=== PATIENT | female | born 1940 | race Caucasian/White ===

== ENCOUNTER 2017-08-24 06:22 | Inpatient (IN) | payer MEDICARE ==
[~2017-08-24] VITALS: Ht 149.9 cm; Wt 72.7 kg
[~2017-08-24 06:22] MED LIST: ACET-1600 PO; CLON-364 PO; DILT240C77 PO; HYDR-3240 PO; HYDR-3307 PO; LEVO100T5 PO; ZOLP5TAB6 PO
[2017-08-24] MEDS ORDERED: morphine SULFATE 10 MG/ML, 1ML ONE (06:48)
[2017-08-24] MEDS: MORPHINE SULFATE 4 MG/ML, 1ML IVPush PRN ×4 (06:51→19:17)
[2017-08-24] MEDS ORDERED: SODIUM CHLORIDE FLUSH 10ML SYR IVF ONE (07:00)
[2017-08-24 07:09] LABS: MEAN CORPUSCULAR HEMOGLOBIN 29.1 pg (27.0-34.8); MEAN CORPUSCULAR HGB CONC 34.3 g/dL (32.4-35.8); MEAN CORPUSCULAR VOLUME 84.9 fL (80-100); MEAN PLATELET VOLUME 7.8 fL (7.4-10.4); PLATELET COUNT 190 x10^3/uL (130-400); RED BLOOD COUNT 3.67 x10^6/uL (3.82-5.3); RED CELL DISTRIBUTION WIDTH 13.5 % (9.6-15.2)
[2017-08-24 07:13] LABS: ALBUMIN 2.9 g/dL (3.4-5.0); ANION GAP 7 mmol/L (5-15); CALCIUM 8.5 mg/dL (8.5-10.1); CHLORIDE 101 mmol/L (98-107); CREATININE 0.68 mg/dL (0.55-1.02)
[2017-08-24 07:17] LABS: TROPONIN I 0.039 ng/mL (0.000-0.045)
[2017-08-24 07:24] LABS: BASOPHILS # (AUTO) 0.01 x10^3/uL (0-0.1); BASOPHILS % (AUTO) 0 % (0-1); EOSINOPHILS # (AUTO) 0.01 x10^3/uL (0-0.4); EOSINOPHILS % (AUTO) 0 % (1-7); LYMPHOCYTES # (AUTO) 0.57 x10^3/uL (1-3.4); LYMPHOCYTES % (AUTO) 8 % (22-44); MD SCAN; MONOCYTES # (AUTO) 0.49 x10^3/uL (0.2-0.8); MONOCYTES % (AUTO) 7 % (2-9); NEUTROPHILS # (AUTO) 5.93 x10^3/uL (1.8-6.8); NEUTROPHILS % (AUTO) 85 % (42-75)
[2017-08-24] MEDS ORDERED: MORPHINE SULFATE 4 MG/ML, 1ML IVPush PRN (08:30)
[2017-08-24] MEDS ORDERED: OMNIPAQUE 350 MG/ML, 100ML BOTTLE ONE (08:54)
[2017-08-24] MEDS ORDERED: LEVO25TA2 PO (09:07)
[2017-08-24] MEDS ORDERED: FUROSEMIDE 20 MG/2 ML IV ONE (10:00)
[2017-08-24] MEDS ORDERED: FUROSEMIDE 40 MG/4 ML ONE (10:42)
[2017-08-24] MEDS ORDERED: MORPHINE SULFATE 4 MG/ML, 1ML ONE (10:43)
[2017-08-24] MEDS ORDERED: hydrALAzine 20 MG/ML, 1ML IVPush PRN (11:00)
[2017-08-24] MEDS ORDERED: ONDANSETRON 2MG/ML, 2ML IVPush PRN (11:00)
[2017-08-24] MEDS ORDERED: POTASSIUM CHLORIDE 20 MEQ TAB.ER.PRT PO ONE (11:30)
[2017-08-24] MEDS: HYDROcodone/APAP 5/325 TABLET PO PRN ×2 (12:15→22:10)
[2017-08-24] MEDS: HEPARIN 5,000 UNITS/ML, 1ML SQ SCH ×2 (12:16→19:17)
[2017-08-24 14:01] VITALS: BP 123/66
[2017-08-24 19:52] VITALS: BP 156/83
[2017-08-25] MEDS: MORPHINE SULFATE 4 MG/ML, 1ML IVPush PRN ×2 (01:15→06:19)
[2017-08-25 01:16] VITALS: BP 157/87
[2017-08-25] MEDS: HEPARIN 5,000 UNITS/ML, 1ML SQ SCH ×3 (02:44→18:41)
[2017-08-25] MEDS: HYDROcodone/APAP 5/325 TABLET PO PRN ×4 (04:29→22:09)
[2017-08-25 06:07] LABS: BASOPHILS # (AUTO) 0.02 x10^3/uL (0-0.1); BASOPHILS % (AUTO) 0 % (0-1); EOSINOPHILS # (AUTO) 0.04 x10^3/uL (0-0.4); EOSINOPHILS % (AUTO) 1 % (1-7); LYMPHOCYTES % (AUTO) 13 % (22-44); MD NO; MEAN CORPUSCULAR HEMOGLOBIN 29.5 pg (27.0-34.8); MEAN CORPUSCULAR HGB CONC 34.3 g/dL (32.4-35.8); MEAN PLATELET VOLUME 7.8 fL (7.4-10.4); MONOCYTES % (AUTO) 10 % (2-9); NEUTROPHILS # (AUTO) 5.26 x10^3/uL (1.8-6.8); NEUTROPHILS % (AUTO) 76 % (42-75); PLATELET COUNT 226 x10^3/uL (130-400); RED BLOOD COUNT 3.77 x10^6/uL (3.82-5.3); RED CELL DISTRIBUTION WIDTH 13.1 % (9.6-15.2)
[2017-08-25 06:13] LABS: ANION GAP 5 mmol/L (5-15); CALCIUM 8.5 mg/dL (8.5-10.1); CHLORIDE 98 mmol/L (98-107); CREATININE 0.52 mg/dL (0.55-1.02)
[2017-08-25 06:50] VITALS: BP 152/85
[2017-08-25] MEDS: LEVOTHYROXINE 88 MCG TABLET PO SCH (08:30)
[2017-08-25] MEDS: DOCUSATE 100 MG CAPSULE PO SCH (08:56)
[2017-08-25] MEDS: DILTIAZEM 240 MG CAP.ER.24H PO SCH (08:57)
[2017-08-25] MEDS: FUROSEMIDE 40 MG/4 ML IV SCH ×2 (08:59→17:09)
[2017-08-25 13:06] VITALS: BP 118/67
[2017-08-25 19:03] VITALS: BP 118/71
[2017-08-25] MEDS ORDERED: ZOLPIDEM 5MG TABLET PO PRN (21:30)
[2017-08-26 01:27] VITALS: BP 136/79
[2017-08-26] MEDS: MORPHINE SULFATE 4 MG/ML, 1ML IVPush PRN (02:40)
[2017-08-26] MEDS: HEPARIN 5,000 UNITS/ML, 1ML SQ SCH ×2 (03:17→11:00)
[2017-08-26 04:50] LABS: BASOPHILS # (AUTO) 0.03 x10^3/uL (0-0.1); BASOPHILS % (AUTO) 0 % (0-1); EOSINOPHILS # (AUTO) 0.02 x10^3/uL (0-0.4); EOSINOPHILS % (AUTO) 0 % (1-7); LYMPHOCYTES # (AUTO) 0.76 x10^3/uL (1-3.4); LYMPHOCYTES % (AUTO) 11 % (22-44); MD NO; MEAN CORPUSCULAR HEMOGLOBIN 28.7 pg (27.0-34.8); MEAN CORPUSCULAR HGB CONC 33.9 g/dL (32.4-35.8); MEAN CORPUSCULAR VOLUME 84.6 fL (80-100); MEAN PLATELET VOLUME 7.3 fL (7.4-10.4); MONOCYTES # (AUTO) 0.68 x10^3/uL (0.2-0.8); MONOCYTES % (AUTO) 10 % (2-9); NEUTROPHILS # (AUTO) 5.29 x10^3/uL (1.8-6.8); NEUTROPHILS % (AUTO) 78 % (42-75); PLATELET COUNT 277 x10^3/uL (130-400); RED BLOOD COUNT 3.97 x10^6/uL (3.82-5.3); RED CELL DISTRIBUTION WIDTH 13.3 % (9.6-15.2)
[2017-08-26] MEDS: LEVOTHYROXINE 88 MCG TABLET PO SCH (04:50)
[2017-08-26] MEDS: HYDROcodone/APAP 5/325 TABLET PO PRN ×2 (04:50→14:14)
[2017-08-26 05:02] LABS: ANION GAP 5 mmol/L (5-15); CALCIUM 8.6 mg/dL (8.5-10.1); CHLORIDE 96 mmol/L (98-107)
[2017-08-26 05:04] LABS: CREATININE 0.68 mg/dL (0.55-1.02)
[2017-08-26 07:55] VITALS: BP 145/81
[2017-08-26] MEDS ORDERED: MAGNESIUM HYDROXIDE 8%, 30ML UDC PO SCH (09:00)
[2017-08-26] MEDS: DOCUSATE 100 MG CAPSULE PO SCH (09:28)
[2017-08-26] MEDS: DILTIAZEM 240 MG CAP.ER.24H PO SCH (09:28)
[2017-08-26 12:05] VITALS: BP 164/82
[2017-08-26 21:30] VITALS: BP 160/92
== END 2017-08-27 03:56 | disposition home health service (06) | DRG 291 ==
LOC: ED 08:30 → EDIP 09:41 → 4WST 11:48
PROVIDERS: ADMIT Internal Medicine Pulmonary Disease; ATTEND Internal Medicine Pulmonary Disease
DX: I11.0 Hypertensive heart disease with heart failure (principal); J96.01 Acute respiratory failure with hypoxia; E44.0 Moderate protein-calorie malnutrition; D64.9 Anemia, unspecified; R73.9 Hyperglycemia, unspecified; M54.5 Low back pain; E03.9 Hypothyroidism, unspecified; F41.1 Generalized anxiety disorder; G89.29 Other chronic pain; K59.00 Constipation, unspecified; Z68.32 Body mass index [BMI] 32.0-32.9, adult; Z80.51 Family history of malignant neoplasm of kidney; Z87.891 Personal history of nicotine dependence; Z90.49 Acquired absence of other specified parts of digestive tract; I50.31 Acute diastolic (congestive) heart failure
CPT/HCPCS: 36415; 71045; 71275; 80048; 82040; 83880; 84484; 85025; 93005; 93306; J1644; J1940; Q9967

== ENCOUNTER 2018-04-14 17:00 | Inpatient (IN) | payer MEDICARE ==
[~2018-04-14] VITALS: Ht 149.9 cm; Wt 74.1 kg
[~2018-04-14 17:00] MED LIST changes: -CLON-364 PO; +CLON0.5T11 PO; +LEVO25TA2 PO
[2018-04-15] MEDS ORDERED: LACTATED RINGERS 1,000 ML IV SCH (07:24)
[2018-04-15] MEDS ORDERED: ACETAMINOPHEN 500 MG TABLET PO ONE (07:30)
[2018-04-15 07:32] VITALS: BP 151/91
[2018-04-15] MEDS ORDERED: ACET325T14 PO (07:57)
[2018-04-15] MEDS ORDERED: METO25TA35 PO (07:57)
[2018-04-15] MEDS ORDERED: POTASSIUM (07:57)
[2018-04-15] MEDS ORDERED: FURO20TA3 PO (07:57)
[2018-04-15] MEDS ORDERED: MIDAZOLAM 1 MG/ML, 2ML ONE (07:58)
[2018-04-15] MEDS ORDERED: FENTANYL PF 250 MCG/5ML ONE (07:59)
[2018-04-15] MEDS ORDERED: PROPOFOL 10 MG/ML, 20ML ONE (08:02)
[2018-04-15] MEDS ORDERED: ROCURONIUM 10MG/ML,5ML ONE (08:04)
[2018-04-15] MEDS ORDERED: LIDOCAINE-MPF 2% ,5ML ONE (08:05)
[2018-04-15] MEDS ORDERED: CEFAZOLIN 1,000 MG ONE ×2 (08:05)
[2018-04-15] MEDS ORDERED: BUPIVACAINE 0.25% ONE (10:53)
[2018-04-15] MEDS ORDERED: THROMBIN 5,000 UNIT VIAL TP ONE (10:53)
[2018-04-15] MEDS ORDERED: METHYLENE BLUE 10 MG/ML 10ML ONE (10:53)
[2018-04-15] MEDS ORDERED: VANCOMYCIN 1,000 MG ONE (10:54)
[2018-04-15] MEDS ORDERED: EPINEPHRINE 1 MG/ML, 1ML ONE (10:54)
[2018-04-15] MEDS ORDERED: BACITRACIN 50,000 UNIT ONE (10:54)
[2018-04-15] MEDS ORDERED: GLYCOPYRROLATE 0.2MG/1ML, 5ML ONE (11:11)
[2018-04-15] MEDS ORDERED: NEOSTIGMINE 1 MG/ML, 10ML ONE (11:11)
[2018-04-15] MEDS ORDERED: PHENYLEPHRINE 10 MG/ML ONE (11:11)
[2018-04-15] MEDS ORDERED: SUCCINYLCHOLINE 20 MG/ML, 10ML ONE (11:11)
[2018-04-15] MEDS ORDERED: HYDROmorphone 2 MG/ML, 1ML IVPush PRN (11:30)
[2018-04-15] MEDS ORDERED: LABETALOL 5MG/ML, 20ML IV PRN (11:30)
[2018-04-15] MEDS ORDERED: SCOPOLAMINE PATCH, 1.5MG PATCH.TD72 TD PRN (11:30)
[2018-04-15] MEDS ORDERED: MEPERIDINE/PF 25MG/0.5ML IVPush PRN (11:30)
[2018-04-15] MEDS ORDERED: LORazepam 2 MG/ML, 1ML IVPush PRN (11:30)
[2018-04-15] MEDS ORDERED: DIPHENHYDRAMINE 50 MG/ML, 1ML IVPush PRN (11:30)
[2018-04-15] MEDS ORDERED: METOPROLOL 1 MG/ML, 5ML IV PRN (11:30)
[2018-04-15] MEDS ORDERED: METOCLOPRAMIDE 5 MG/ML, 2ML ONE ×2 (11:46)
[2018-04-15] MEDS ORDERED: DEXAMETHASONE 4 MG/ML, 1ML ONE ×2 (11:46)
[2018-04-15] MEDS ORDERED: HYDROcodone/APAP 7.5-325MG/15ML UDC ONE (12:55)
[2018-04-15] MEDS ORDERED: FENTANYL PF 100 MCG/2ML ONE (12:55)
[2018-04-15] MEDS: FENTANYL PF 100 MCG/2ML IV PRN ×4 (12:58→13:21)
[2018-04-15] MEDS ORDERED: PROMETHAZINE 25 MG/ML, 1ML IM PRN (13:00)
[2018-04-15] MEDS ORDERED: HYDROmorphone 2MG TABLET PO PRN (13:00)
[2018-04-15] MEDS ORDERED: morphine SULFATE 10 MG/ML, 1ML IVPush PRN (13:00)
[2018-04-15] MEDS ORDERED: DIPHENHYDRAMINE 50 MG CAPSULE PO PRN (13:00)
[2018-04-15] MEDS ORDERED: TIZANIDINE 2MG TABLET PO PRN (13:00)
[2018-04-15] MEDS ORDERED: HYDROcodone/APAP 10/325 MG TABLET PO PRN (13:00)
[2018-04-15] MEDS ORDERED: MAGNESIUM HYDROXIDE 8%, 30ML UDC PO PRN (13:00)
[2018-04-15] MEDS ORDERED: ONDANSETRON 2MG/ML, 2ML IVPush PRN (13:00)
[2018-04-15] MEDS ORDERED: PHARMACY MAY ADJ FOR RENAL FX MC PRN (13:00)
[2018-04-15] MEDS ORDERED: BISACODYL 10 MG SUPP PR PRN (13:00)
[2018-04-15] MEDS ORDERED: MEPERIDINE/PF 100 MG/ML IM PRN (13:00)
[2018-04-15] MEDS: SODIUM CHLORIDE 0.9% 1,000 ML IV SCH (15:33)
[2018-04-15 20:00] VITALS: BP 137/74
[2018-04-15] MEDS: CEFAZOLIN PMX 1GM/50ML 50 ML IVPB SCH (20:42)
[2018-04-15] MEDS: SODIUM CHLORIDE FLUSH 10ML SYR IVF SCH (20:45)
[2018-04-15] MEDS ORDERED: ZOLPIDEM 5MG TABLET PO SCH (21:00)
[2018-04-16] VITALS: BP 118/73
[2018-04-16] MEDS: CEFAZOLIN PMX 1GM/50ML 50 ML IVPB SCH (04:36)
[2018-04-16] MEDS: SODIUM CHLORIDE 0.9% 1,000 ML IV SCH (04:36)
[2018-04-16 05:23] VITALS: BP 101/57
[2018-04-16] MEDS ORDERED: LEVOTHYROXINE 88 MCG TABLET PO SCH (06:00)
[2018-04-16 06:51] VITALS: BP 137/73
[2018-04-16] MEDS ORDERED: POTASSIUM CHLORIDE 10 MEQ TABLET.ER PO SCH (08:00)
[2018-04-16 08:45] VITALS: BP 117/60
[2018-04-16] MEDS: SODIUM CHLORIDE FLUSH 10ML SYR IVF SCH (08:49)
[2018-04-16] MEDS ORDERED: DILTIAZEM 240 MG CAP.ER.24H PO SCH (09:00)
[2018-04-16] MEDS ORDERED: METOPROLOL TARTRATE 25 MG TABLET PO SCH (09:00)
[2018-04-16] MEDS ORDERED: SENNA/DOCUSATE TABLET PO SCH (09:00)
[2018-04-16] MEDS ORDERED: FUROSEMIDE 40 MG TABLET PO SCH (09:00)
[2018-04-16 12:02] VITALS: BP 137/79
== END 2018-04-16 14:31 | disposition home or self-care (01) | DRG 517 ==
LOC: ORIP 04-15 06:57 → 3WST 04-15 10:53 → ORIP 04-15 10:53 → 4NOR 04-15 14:17 → DCLOUNGE 04-16 14:06
PROVIDERS: ADMIT Neurological Surgery; ATTEND Neurological Surgery
PROC: 01NB0ZZ Release Lumbar Nerve, Open Approach (ICD-10-PCS; 2018-04-15)
PROC: 4A1104G Monitoring of Peripheral Nervous Electrical Activity, Intraoperative, Open Approach (ICD-10-PCS; 2018-04-15)
PROC: 0SP304Z Removal of Internal Fixation Device from Lumbosacral Joint, Open Approach (ICD-10-PCS; 2018-04-15)
PROC: 0SP004Z Removal of Internal Fixation Device from Lumbar Vertebral Joint, Open Approach (ICD-10-PCS; principal; 2018-04-15 10:00)
DX: M54.16 Radiculopathy, lumbar region (principal); I10 Essential (primary) hypertension; M19.90 Unspecified osteoarthritis, unspecified site; M53.3 Sacrococcygeal disorders, not elsewhere classified; E03.9 Hypothyroidism, unspecified; Z88.8 Allergy status to other drugs, medicaments and biological substances
CPT/HCPCS: G0378; J0171; J0690; J1100; J2250; J2704; J2710; J3010; J3370; J3490; J0330; J2370; J2765; J7030; J7120; Q9968